=== PATIENT | male | born 1965 | race Caucasian/White ===

== ENCOUNTER 2018-03-25 11:24 | Inpatient (IN) | payer BC ==
[2018-03-25 12:41] VITALS: BMI 29.5
--- NOTE | 2018-03-25 13:48 | HP ---
CIWA Score Nausea/Vomitin-No Nausea/No Vomiting Muscle Tremors: 2 Anxiety: 3 Agitation: 3 Paroxysmal Sweats: 2 Orientation: 0-Oriented Tacttile Disturbances: 0-None Auditory Disturbances: 0-None Visual Disturbances: 0-None Headache: 3-Moderate CIWA-Ar Total Score: 13 - Admission Criteria OASAS Guidelines: Admission for Medically Managed Detox: Requires at least one of the followin. CIWA greater than 12 2. Seizures within the past 24 hours 3. Delirium tremens within the past 24 hours 4. Hallucinations within the past 24 hours 5. Acute intervention needed for co occurring medical disorder 6. Acute intervention needed for co occurring psychiatric disorder 7. Severe withdrawal that cannot be handled at a lower level of care (continued vomiting, continued diarrhea, abnormal vital signs) requiring intravenous medication and/or fluids 8. Admission ROS [facility] Chief Complaint: ETOH WITHDRAWAL SYMPTOMS. Allergies/Adverse Reactions: Allergies Allergy/AdvReac Type Severity Reaction Status Date / Time No Known Allergies Allergy Verified 03/25/18 13:08 History of Present Illness: PATIENT PRESENTS WITH ETOH WITHDRAWAL SYMPTOMS. THIS IS PATIENT'S FIRST ADMISSION HERE AT [facility]. PREVIOUS DETOX ATTEMPT AT [facility] IN 09/2017. PATIENT STARTED DRINKING AT AGE 9, RELAPSED IN 12/2017. DRINKS UP TO 12 BEERS DAILY. LAST DRINKS WAS LAST NIGHT, 3AM. DENIES H/O SEIZURES. +H/O FALLS, BLACKOUTS. PATIENT HAS FIRST DRINK IN THE AM. PATIENT PMH INCLUDES DEPRESSION. DENIES SI/ HI AND SUICIDE ATTEMPTS. UDS + BZO, PATIENT HAD KLONIPIN PRESCRIBED IN PAST, VERIFIED IN ISTOP AND HAD MEDICATION LEFT OVER. PATIENT HAD DOSE PRIOR TO ADMISSION. Exam Limitations: No Limitations - Ebola screening Have you traveled outside of the country in the last 21 days: No Have you had contact with anyone from an Ebola affected area: No Have you been sick,other than usual withdrawal symptoms: No Do you have a fever: No - Review of Systems Constitutional: Changes in sleep EENT: reports: No Symptoms Reported Respiratory: reports: No Symptoms reported Cardiac: reports: No Symptoms Reported GI: reports: Nausea, Poor Fluid Intake, Abdominal cramping : reports: Frequency (DUE TO ETOH INTAKE) Musculoskeletal: reports: Back Pain, Muscle Pain Integumentary: reports: Erythema, Flushing Neuro: reports: Headache, Tremors Endocrine: reports: Flushing Hematology: reports: No Symptoms Reported Psychiatric: reports: Orientated x3, Anxious, Depressed Patient History - Patient Medical History Hx Anemia: No Hx Asthma: No Hx Chronic Obstructive Pulmonary Disease (COPD): No Hx Cancer: No Hx Cardiac Disorders: No Hx Congestive Heart Failure: No Hx Hypertension: No Hx Hypercholesterolemia: No Hx Pacemaker: No HX Cerebrovascular Accident: No Hx Seizures: No Hx Dementia: No Hx Diabetes: No Hx Gastrointestinal Disorders: No Hx Liver Disease: No Hx Genitourinary Disorders: No Hx Sexually Transmitted Disorders: No Hx Renal Disease (ESRD): No Hx Thyroid Disease: No Hx Human Immunodeficiency Virus (HIV): No Hx Hepatitis C: No Hx Depression: Yes Hx Suicide Attempt: No Hx Bipolar Disorder: No Hx Schizophrenia: No - Patient Surgical History Past Surgical History: Yes Hx Neurologic Surgery: No Hx Cataract Extraction: No Hx Cardiac Surgery: No Hx Lung Surgery: No Hx Breast Surgery: No Hx Breast Biopsy: No Hx Abdominal Surgery: No Hx Appendectomy: No Hx Cholecystectomy: No Hx Genitourinary Surgery: No Hx Orthopedic Surgery: No Other Surgical History: removal of cyst, neck Anesthesia Reaction: No - PPD History Previous Implant?: Yes Documented Results: Negative w/o proof Implanted On Prior R Admission?: No PPD to be Administered?: Yes - Smoking Cessation Smoking history: Current every day smoker Have you smoked in the past 12 months: Yes Aproximately how many cigarettes per day: 20 Hx Chewing Tobacco Use: No Initiated information on smoking cessation: Yes 'Breaking Loose' booklet given: 03/25/18 - Substances Abused Alcohol-beer Route: Oral Frequency: Daily Amount used: 3-6 pks. Age of first use: 9 Date of Last Use: 03/25/18 Family Disease History - Family Disease History Family Disease History: Other: Father (ALCOHOLISM, ) Admission Physical Exam BHS - Vital Signs Vital Signs: Vital Signs - 24 hr 03/25/18 12:39 Temperature 97.8 F Pulse Rate 95 H Respiratory 20 Rate Blood Pressure 137/93 - Physical General Appearance: Yes: No Apparent Distress, Appropriately Dressed, Tremorous , Anxious HEENTM: Yes: EOMI, Hearing grossly Normal, Normal ENT Inspection, Normocephalic , Normal Voice, POLINA, Pharynx Normal Respiratory: Yes: Chest Non-Tender, Normal Breath Sounds, No Respiratory Distress, No Accessory Muscle Use, Wheezing Neck: Yes: No masses,lesions,Nodules, Supple, Trachea in good position Breast: Yes: Breast Exam Deferred Cardiology: Yes: Regular Rhythm, Regular Rate, S1, S2 Abdominal: Yes: Normal Bowel Sounds, Non Tender, Soft Genitourinary: Yes: Within Normal Limits Back: Yes: Normal Inspection, Muscle Spasm Musculoskeletal: Yes: full range of Motion, Gait Steady, Back pain, Muscle Pain Extremities: Yes: Normal Inspection, Normal Range of Motion, Non-Tender, Tremors Neurological: Yes: receiving barn custodian II-XII NML intact, Fully Oriented, Alert, Motor Strength 5/5, Depressed Affect Integumentary: Yes: Normal Color, Dry, Warm, Erythema Lymphatic: Yes: Within Normal Limits - Diagnostic (1) Alcohol dependence with uncomplicated withdrawal Current Visit: Yes Status: Acute (2) Anxiety Current Visit: Yes Status: Chronic (3) Depression Current Visit: Yes Status: Chronic Qualifiers: Depression Type: unspecified Qualified Code(s): F32.9 - Major depressive disorder, single episode, unspecified (4) Nicotine dependence Current Visit: Yes Status: Chronic Qualifiers: Nicotine product type: cigarettes Substance use status: uncomplicated Qualified Code(s): F17.210 - Nicotine dependence, cigarettes, uncomplicated Cleared for Admission [facility] - Detox or Rehab [facility] Level of Care: Medically Managed Detox Regimen/Protocol: Librium [facility] Breath Alcohol Content Breath Alcohol Content: 0.062 Urine Drug Screen - Results Drug Screen Negative: No Urine Drug Screen Results: BZO-Benzodiazepines
[2018-03-25] MEDS ORDERED: P-EPHED 60MG/TRIPROLIDI 2.5MG TABLET PO PRN (13:57)
[2018-03-25] MEDS ORDERED: MAGNESIUM HYDROX 2400MG/30ML ORAL SUSPENSION 30 ML CUP PO PRN (13:57)
[2018-03-25] MEDS ORDERED: IBUPROFEN 400 MG TABLET (FP) PO PRN (13:57)
[2018-03-25] MEDS ORDERED: ACETAMINOPHEN 325 MG TABLET (FP) PO PRN (13:57)
[2018-03-25] MEDS ORDERED: MAG HYDROX/AL HYDROX/SIMETH 30 ML UNIT-DOSE CUP PO PRN (13:57)
[2018-03-25] MEDS ORDERED: MENTHOL/PHENOL 1 EACH UD MM PRN (13:57)
[2018-03-25] MEDS ORDERED: guaiFENesin/D-METHORPHAN HB 10 ML UNIT-DOSE CUPS PO PRN (13:57)
[2018-03-25] MEDS ORDERED: LOPERAMIDE HCL 2 MG CAPSULE PO PRN (13:57)
[2018-03-25] MEDS ORDERED: MAGNESIUM CITRATE 300 ML BOTTLE PO PRN (13:57)
[2018-03-25] MEDS ORDERED: NICOTINE POLACRILEX 2 MG GUM BUC PRN (13:57)
[2018-03-25] MEDS ORDERED: chlordiazePOXIDE HCL 25 MG CAPSULE PO PRN (13:58)
[2018-03-25] MEDS ORDERED: chlordiazePOXIDE HCL 25 MG CAPSULE PO ONE (15:00)
--- NOTE | 2018-03-25 15:28 | EKG ---
Test Reason : Blood Pressure : / mmHG Vent. Rate : 091 BPM Atrial Rate : 091 BPM P-R Int : 162 ms QRS Dur : 102 ms QT Int : 360 ms P-R-T Axes : 058 013 041 degrees QTc Int : 442 ms NORMAL SINUS RHYTHM POSSIBLE LEFT ATRIAL ENLARGEMENT BORDERLINE ECG NO PREVIOUS ECGS AVAILABLE Confirmed by DESTINEY BRADY, SANDER ([id number]) on 03/25/2018 3:28:38 PM Referred By: Confirmed By:SANDER CABELLO MD
[2018-03-25 18:47] LABS: URINE APPEARANCE TURBID; URINE BILIRUBIN NEGATIVE (<2.0 mg/dL); URINE COLOR YELLOW; URINE GLUCOSE (UA) NEGATIVE (NEGATIVE); URINE KETONE NEGATIVE (NEGATIVE); URINE LEUK ESTERASE NEGATIVE (NEGATIVE); URINE NITRITE NEGATIVE (NEGATIVE); URINE PROTEIN 1+ (NEGATIVE)
[2018-03-25 19:03] LABS: URINE BACTERIA MANY /hpf (NONE SEEN); URINE MUCUS MANY
[2018-03-25 19:07] LABS: AMORP URATES 4+ /hpf (NONE SEEN)
[2018-03-25] MEDS: chlordiazePOXIDE HCL 25 MG CAPSULE PO SCH (22:14)
[2018-03-25] MEDS: THIAMINE HCL 100 MG TABLET (FP) PO SCH (22:14)
[2018-03-25] MEDS: MELATONIN 5 MG TABLETS PO PRN (22:15)
[2018-03-26] MEDS: chlordiazePOXIDE HCL 25 MG CAPSULE PO SCH ×4 (05:34→22:16)
[2018-03-26] MEDS: PRENATAL VITAMINS W/ FOLIC ACID TABLET (FP) PO SCH (10:11)
[2018-03-26] MEDS: NICOTINE 21 MG/24 HOURS TOPICAL PATCH TD SCH (10:11)
[2018-03-26 10:24] LABS: HEMATOCRIT 54.2 % (35.4-49); HEMOGLOBIN 18.8 GM/dL (11.7-16.9); MCH 34.1 pg (25.7-33.7); MCHC 34.6 g/dl (32.0-35.9); MEAN CELL VOLUME 98.5 fl (80-96); MEAN PLT VOLUME 7.8 fl (7.5-11.1); PLATELET COUNT 223 K/MM3 (134-434); RBC 5.51 M/mm3 (4.00-5.60); RDW 13.6 % (11.9-15.9); WHITE BLOOD COUNT 6.9 K/mm3 (4.0-10.0)
[2018-03-26 11:17] LABS: ALBUMIN 3.8 g/dl (3.4-5.0); ALK PHOS 81 U/L (45-117); ANION GAP 11 MMOL/L (8-16); BILIRUBIN,TOTAL 1.1 mg/dL (0.2-1); BLOOD UREA NITROGEN 9 mg/dL (7-18); CALCIUM 8.9 mg/dL (8.5-10.1); CHLORIDE 102 mmol/L (98-107); CO2 26 mmol/L (21-32); CREATININE 0.7 mg/dL (0.55-1.3); GLUCOSE,RANDOM 103 mg/dL (74-106); POTASSIUM 3.9 mmol/L (3.5-5.1); SGOT/AST 15 U/L (15-37); SGPT/ALT 42 U/L (13-61); SODIUM 139 mmol/L (136-145); TOT PROT 7.3 g/dl (6.4-8.2)
--- NOTE | 2018-03-26 14:21 | PN ---
S CIWA - CIWA Score Nausea/Vomitin Muscle Tremors: 4-Moderate,w/Arms Extend Anxiety: 4-Mod. Anxious/Guarded Agitation: 2 Paroxysmal Sweats: 3 Orientation: 0-Oriented Tacttile Disturbances: 0-None Auditory Disturbances: 0-None Visual Disturbances: 0-None Headache: 2-Mild CIWA-Ar Total Score: 17 BHS Progress Note (SOAP) Subjective: Feeling tired, anxious, soft stool, interrupted sleep Objective: 03/26/18 14:39 Last Vital Signs Temp Pulse Resp BP Pulse Ox 96.8 F L 90 20 142/90 03/26/18 14:19 03/26/18 14:19 03/26/18 14:19 03/26/18 14:19 Elevated b/p noted (142/90) Laboratory Tests 03/25/18 03/26/18 03/26/18 17:30 07:30 07:30 WBC 6.9 RBC 5.51 Hgb 18.8 H Hct 54.2 H MCV 98.5 H MCH 34.1 H MCHC 34.6 RDW 13.6 Plt Count 223 MPV 7.8 Sodium 139 Potassium 3.9 Chloride 102 Carbon Dioxide 26 Anion Gap 11 BUN 9 Creatinine 0.7 Creat Clearance w eGFR > 60 Random Glucose 103 Calcium 8.9 Total Bilirubin 1.1 H AST 15 ALT 42 Alkaline Phosphatase 81 Total Protein 7.3 Albumin 3.8 Urine Color Yellow Urine Appearance Turbid Urine pH 5.0 Ur Specific [place] 1.017 Urine Protein 1+ H Urine Glucose (UA) Negative Urine Ketones Negative Urine Blood Negative Urine Nitrite Negative Urine Bilirubin Negative Urine Urobilinogen 2.0 Ur Leukocyte Esterase Negative Urine WBC (Auto) None Urine RBC (Auto) None Amorphous Urates 4+ Urine Bacteria Many Urine Mucus Many Labs reviewed: abnormal cbc, abnormal UA Assessment: 03/26/18 14:40 Withdrawal symptoms Noted with elevated b/p, abnormal CBC and UA Plan: Continue detox Elevated B/P: start clonidine 0.1mg PO q8hr prn if b/p > 140/90 Abnormal CBC: repeat CBC Abnormal UA: encouraged PO water intake, repeat UA
[2018-03-26] MEDS ORDERED: cloNIDine HCL 0.1 MG TABLET PO PRN (14:41)
--- NOTE | 2018-03-26 19:48 | CONSULT ---
[facility] Psychiatric Consult - Data Date of interview: 03/26/18 Admission source: [facility] Identifying data: First admission to [facility] for this 52 y/o male seeking detoxification treatment on for alcohol dependence. Patient is single, a father of one, domiciled and currently employed for a major company. Substance Abuse History: Confirmed by the patient. Details in current [facility] report : Smoking history: Current every day smoker. Have you smoked in the past 12 months: Yes. Aproximately how many cigarettes per day: 20. Hx Chewing Tobacco Use: No. Initiated information on smoking cessation: Yes. 'Breaking Loose' booklet given: 03/25/18. - Substances Abused. Alcohol-beer. Route: Oral. Frequency: Daily. Amount used: 3-6 pks. Age of first use: 9. Date of Last Use: 03/25/18 Medical History: Patient endorses good general health. Psychiatric History: No reported history of psychiatric hospitalizations. Patient reports, however, that he is currently seeing a psychologist to address anxiety and depression. Mr Ke " believes " that he may be suffering from PTSD from the distress caused by six consecutive years of litigation ( embroiled in a dispute with a female co-worker). Patient is medicated with lexapro 10 mg/day + zolpidem 10 mg/hs. Meets weekly with his therapist. No history of suicide attempts. Physical/Sexual Abuse/Trauma History: Traumatized by years of court carias with a co-worker. Additional Comment: Urine Drug Screen Results: BZO-Benzodiazepines. Noted. Mental Status Exam - Mental Status Exam Alert and Oriented to: Time, Place, Person Cognitive Function: Good Patient Appearance: Unkempt, Disheveled (tall, obese male, appearing older than stated age ; flushed facial features) Mood: Withdrawn, Anxious Affect: Mood Congruent, Constricted Patient Behavior: Fatigued, Appropriate (well-mannered), Cooperative Speech Pattern: Clear, Appropriate Voice Loudness: Normal Thought Process: Intact, Goal Oriented Thought Disorder: Not Present Hallucinations: Denies Suicidal Ideation: Denies Homicidal Ideation: Denies Insight/Judgement: Fair Sleep: Poorly, Difficulty falling asleep Appetite: Good Muscle strength/Tone: Normal Gait/Station: Normal Psychiatric Findings - Problem List ([place] 1, 2,3) (1) Alcohol dependence with uncomplicated withdrawal Current Visit: Yes Status: Acute (2) Alcohol-induced mood disorder Current Visit: Yes Status: Acute (3) Nicotine dependence Current Visit: Yes Status: Acute Qualifiers: Nicotine product type: cigarettes Substance use status: uncomplicated Qualified Code(s): F17.210 - Nicotine dependence, cigarettes, uncomplicated (4) Depressive disorder Current Visit: Yes Status: Chronic (5) Insomnia Current Visit: Yes Status: Acute - Initial Treatment Plan Initial Treatment Plan: Psychoeducation. Sleep hygiene. Detoxification. AA meetings. Patient is advised to consider a trial of naltrexone after discharge. Psychotherapy : supportive, cognitive and group. Insomnia is addressed with melatonin at bedtime. Patient is in agreement with this plan of care. Mr Guilherme' zach decided not to resume lexapro during this hospital course. " I will restart my medications after my detox ". Observation.
[2018-03-26] MEDS: MELATONIN 5 MG TABLETS PO PRN (22:16)
[2018-03-26] MEDS: THIAMINE HCL 100 MG TABLET (FP) PO SCH (22:16)
[2018-03-27] MEDS: hydrOXYzine PAMOATE 50 MG CAPSULE (FP) PO PRN ×4 (00:28→22:07)
[2018-03-27] MEDS: chlordiazePOXIDE HCL 25 MG CAPSULE PO SCH ×3 (05:06→17:15)
[2018-03-27] MEDS: PRENATAL VITAMINS W/ FOLIC ACID TABLET (FP) PO SCH (10:16)
[2018-03-27] MEDS: NICOTINE 21 MG/24 HOURS TOPICAL PATCH TD SCH (10:17)
[2018-03-27 11:01] LABS: BASO % 0.6 % (0-2.0); EOS % 5.2 % (0-4.5); HEMATOCRIT 55.3 % (35.4-49); HEMOGLOBIN 17.8 GM/dL (11.7-16.9); LYMPH % 27.4 % (8-40); MCH 32.3 pg (25.7-33.7); MCHC 32.1 g/dl (32.0-35.9); MEAN CELL VOLUME 100.7 fl (80-96); MEAN PLT VOLUME 7.7 fl (7.5-11.1); MONO % 9.5 % (3.8-10.2); NEUT % 57.3 % (42.8-82.8); PLATELET COUNT 210 K/MM3 (134-434); RBC 5.49 M/mm3 (4.00-5.60); RDW 13.5 % (11.9-15.9); WHITE BLOOD COUNT 6.5 K/mm3 (4.0-10.0)
--- NOTE | 2018-03-27 12:57 | PN ---
S CIWA - CIWA Score Nausea/Vomitin-No Nausea/No Vomiting Muscle Tremors: 3 Anxiety: 4-Mod. Anxious/Guarded Agitation: 2 Paroxysmal Sweats: 1-Minimal Palms Moist Orientation: 0-Oriented Tacttile Disturbances: 0-None Auditory Disturbances: 0-None Visual Disturbances: 0-None Headache: 0-None Present CIWA-Ar Total Score: 10 BHS Progress Note (SOAP) Subjective: FACIAL FLUSHING, SLIGHT ANXIETY, DECREASED TREMORS. Objective: 03/27/18 12:56 Vital Signs 03/27/18 06:34 Temperature 97.5 F L Pulse Rate 78 Respiratory 18 Rate Blood Pressure 125/87 Laboratory Tests 03/25/18 03/26/18 03/26/18 17:30 07:30 07:30 WBC 6.9 RBC 5.51 Hgb 18.8 H Hct 54.2 H MCV 98.5 H MCH 34.1 H MCHC 34.6 RDW 13.6 Plt Count 223 MPV 7.8 Absolute Neuts (auto) Neutrophils % Lymphocytes % Monocytes % Eosinophils % Basophils % Nucleated RBC % Sodium 139 Potassium 3.9 Chloride 102 Carbon Dioxide 26 Anion Gap 11 BUN 9 Creatinine 0.7 Creat Clearance w eGFR > 60 Random Glucose 103 Calcium 8.9 Total Bilirubin 1.1 H AST 15 ALT 42 Alkaline Phosphatase 81 Total Protein 7.3 Albumin 3.8 Urine Color Yellow Urine Appearance Turbid Urine pH 5.0 Ur Specific [place] 1.017 Urine Protein 1+ H Urine Glucose (UA) Negative Urine Ketones Negative Urine Blood Negative Urine Nitrite Negative Urine Bilirubin Negative Urine Urobilinogen 2.0 Ur Leukocyte Esterase Negative Urine WBC (Auto) None Urine RBC (Auto) None Amorphous Urates 4+ Urine Bacteria Many Urine Mucus Many RPR Titer 03/26/18 03/27/18 07:30 07:50 WBC 6.5 RBC 5.49 Hgb 17.8 H Hct 55.3 H MCV 100.7 H MCH 32.3 MCHC 32.1 RDW 13.5 Plt Count 210 MPV 7.7 Absolute Neuts (auto) 3.7 Neutrophils % 57.3 Lymphocytes % 27.4 Monocytes % 9.5 Eosinophils % 5.2 H Basophils % 0.6 Nucleated RBC % 0 Sodium Potassium Chloride Carbon Dioxide Anion Gap BUN Creatinine Creat Clearance w eGFR Random Glucose Calcium Total Bilirubin AST ALT Alkaline Phosphatase Total Protein Albumin Urine Color Urine Appearance Urine pH Ur Specific [place] Urine Protein Urine Glucose (UA) Urine Ketones Urine Blood Urine Nitrite Urine Bilirubin Urine Urobilinogen Ur Leukocyte Esterase Urine WBC (Auto) Urine RBC (Auto) Amorphous Urates Urine Bacteria Urine Mucus RPR Titer Nonreactive REPEAT LABS NOTED WITH VERY SLIGHT IMPROVEMENT. Assessment: 03/27/18 12:57 WITHDRAWAL SX HYPERHEMOGLOBINEMIA Plan: CONTINUE DETOX INCREASE PO FLUIDS
[2018-03-27] MEDS: chlordiazePOXIDE 5 MG CAPSULE PO SCH (22:06)
[2018-03-27] MEDS: THIAMINE HCL 100 MG TABLET (FP) PO SCH (22:06)
[2018-03-27] MEDS: MELATONIN 5 MG TABLETS PO PRN (22:06)
[2018-03-28] MEDS: chlordiazePOXIDE 5 MG CAPSULE PO SCH ×3 (05:05→17:23)
[2018-03-28] MEDS: NICOTINE 21 MG/24 HOURS TOPICAL PATCH TD SCH (10:22)
[2018-03-28] MEDS: PRENATAL VITAMINS W/ FOLIC ACID TABLET (FP) PO SCH (10:22)
--- NOTE | 2018-03-28 16:28 | PN ---
S Progress Note (SOAP) Subjective: Denies any withdrawal symptoms; patient is anxious Objective: 03/28/18 16:24 Last Vital Signs Temp Pulse Resp BP Pulse Ox 98.3 F 91 H 20 111/80 03/28/18 13:14 03/28/18 13:14 03/28/18 13:14 03/28/18 13:14 Laboratory Tests 03/25/18 03/26/18 03/26/18 17:30 07:30 07:30 WBC 6.9 RBC 5.51 Hgb 18.8 H Hct 54.2 H MCV 98.5 H MCH 34.1 H MCHC 34.6 RDW 13.6 Plt Count 223 MPV 7.8 Absolute Neuts (auto) Neutrophils % Lymphocytes % Monocytes % Eosinophils % Basophils % Nucleated RBC % Sodium 139 Potassium 3.9 Chloride 102 Carbon Dioxide 26 Anion Gap 11 BUN 9 Creatinine 0.7 Creat Clearance w eGFR > 60 Random Glucose 103 Calcium 8.9 Total Bilirubin 1.1 H AST 15 ALT 42 Alkaline Phosphatase 81 Total Protein 7.3 Albumin 3.8 Urine Color Yellow Urine Appearance Turbid Urine pH 5.0 Ur Specific [place] 1.017 Urine Protein 1+ H Urine Glucose (UA) Negative Urine Ketones Negative Urine Blood Negative Urine Nitrite Negative Urine Bilirubin Negative Urine Urobilinogen 2.0 Ur Leukocyte Esterase Negative Urine WBC (Auto) None Urine RBC (Auto) None Amorphous Urates 4+ Urine Bacteria Many Urine Mucus Many RPR Titer 03/26/18 03/27/18 07:30 07:50 WBC 6.5 RBC 5.49 Hgb 17.8 H Hct 55.3 H MCV 100.7 H MCH 32.3 MCHC 32.1 RDW 13.5 Plt Count 210 MPV 7.7 Absolute Neuts (auto) 3.7 Neutrophils % 57.3 Lymphocytes % 27.4 Monocytes % 9.5 Eosinophils % 5.2 H Basophils % 0.6 Nucleated RBC % 0 Sodium Potassium Chloride Carbon Dioxide Anion Gap BUN Creatinine Creat Clearance w eGFR Random Glucose Calcium Total Bilirubin AST ALT Alkaline Phosphatase Total Protein Albumin Urine Color Urine Appearance Urine pH Ur Specific [place] Urine Protein Urine Glucose (UA) Urine Ketones Urine Blood Urine Nitrite Urine Bilirubin Urine Urobilinogen Ur Leukocyte Esterase Urine WBC (Auto) Urine RBC (Auto) Amorphous Urates Urine Bacteria Urine Mucus RPR Titer Nonreactive Labs reviewed Assessment: 03/28/18 16:25 Withdrawal symptoms Noted with abnormal CBC and UA Plan: Continue detox Abnormal CBC: stable, follow up with PCP for monitoring Abnormal UA: encouraged PO water intake, ordered for repeated UA (no specimen provided as of yet) Patient for discharge tomorrow
[2018-03-28] MEDS: MELATONIN 5 MG TABLETS PO PRN (22:17)
[2018-03-28] MEDS: chlordiazePOXIDE HCL 10 MG CAPSULE PO SCH (22:17)
[2018-03-28] MEDS: THIAMINE HCL 100 MG TABLET (FP) PO SCH (22:23)
[2018-03-28] MEDS: hydrOXYzine PAMOATE 50 MG CAPSULE (FP) PO PRN (22:44)
[2018-03-29] MEDS: chlordiazePOXIDE HCL 10 MG CAPSULE PO SCH ×2 (05:39→11:23)
[2018-03-29 09:13] VITALS: BP 115/83; PULSE 92; TEMP 98.8
[2018-03-29] MEDS: NICOTINE 21 MG/24 HOURS TOPICAL PATCH TD SCH (11:23)
[2018-03-29] MEDS: PRENATAL VITAMINS W/ FOLIC ACID TABLET (FP) PO SCH (11:23)
--- NOTE | 2018-03-29 12:26 | PN ---
S Progress Note (SOAP) Subjective: denies any new complaints Objective: 03/29/18 12:23 A & O x 3 no withdrawal sx noted Vital Signs Temperature 98.8 F 03/29/18 09:09 Pulse Rate 92 H 03/29/18 09:09 Respiratory Rate 20 03/29/18 09:09 Blood Pressure 115/83 03/29/18 09:09 O2 Sat by Pulse Oximetry (%) Assessment: 03/29/18 12:25 detox completed Plan: for discharge
--- NOTE | 2018-03-29 12:35 | DS ---
[facility] Detox Discharge Summary Admission Date: 03/25/18 Discharge Date: 03/29/18 - History Additional Comments: pt being discharged home. Will do aftercare as an outpatient at [facility], [place] Pt will also attend AA meetings. Pt will f/u at [facility] and will see his psychologist Dr Mark Anthony Nesbitt today. Pertinent Past History: withdrawal sx - Physical Exam Results Vital Signs: Vital Signs Temperature 98.8 F 03/29/18 09:09 Pulse Rate 92 H 03/29/18 09:09 Respiratory Rate 20 03/29/18 09:09 Blood Pressure 115/83 03/29/18 09:09 O2 Sat by Pulse Oximetry (%) Pertinent Admission Physical Exam Findings: withdrawal sx - Treatment Hospital Course: Detox Protocol Followed, Detoxed Safely, Responded well, Discharged Condition Good (`) Patient has Accepted a Rehab Referral to: [facility] outpatient - Medication Discharge Medications: Ambulatory Orders Escitalopram Oxalate [Lexapro -] 10 mg PO DAILY 03/25/18 Gabapentin [Neurontin -] 300 - 900 mg PO Q8H PRN 03/25/18 - Diagnosis (1) Abnormal complete blood count Status: Acute (2) Abnormal finding on urinalysis Status: Acute (3) Alcohol dependence with uncomplicated withdrawal Status: Acute (4) Alcohol-induced mood disorder Status: Acute (5) Insomnia Status: Acute (6) Anxiety Status: Chronic (7) Depression Status: Chronic Qualifiers: Depression Type: unspecified Qualified Code(s): F32.9 - Major depressive disorder, single episode, unspecified (8) Nicotine dependence Status: Chronic Qualifiers: Nicotine product type: cigarettes Substance use status: in withdrawal Qualified Code(s): F17.213 - Nicotine dependence, cigarettes, with withdrawal (9) Elevated blood pressure reading without diagnosis of hypertension Status: Resolved - AMA Did Patient Leave Against Medical Advice: No
== END 2018-03-29 09:25 | disposition home or self-care (01) | DRG 897 ==
LOC: YASAS 11:24 → Y3N 14:29
PROC: HZ2ZZZZ Detoxification Services for Substance Abuse Treatment (ICD-10-PCS; principal; 2018-03-25)
DX: F10.230 Alcohol dependence with withdrawal, uncomplicated (principal); F17.213 Nicotine dependence, cigarettes, with withdrawal; F10.24 Alcohol dependence with alcohol-induced mood disorder; F41.9 Anxiety disorder, unspecified; F32.9 Major depressive disorder, single episode, unspecified; G47.00 Insomnia, unspecified; R03.0 Elevated blood-pressure reading, without diagnosis of hypertension; R82.90 Unspecified abnormal findings in urine; D58.2 Other hemoglobinopathies
CPT/HCPCS: 36415; 80053; 81003; 81015; 85025; 85027; 86593; 93005; 93010